=== PATIENT | female | born 1960 | race Caucasian/White ===

== ENCOUNTER → 2018-04-13 11:23 | Outpatient (CLI) | payer OTHER, SELFPAY ==
--- NOTE | 2018-04-13 | DI.MG.S_ITS ---
BILATERAL DIGITAL SCREENING MAMMOGRAM 3D/2D WITH CAD: 04/13/2018 CLINICAL: Routine screening. Comparison is made to exams dated: 11/23/2014 mammogram and 04/01/2012 mammogram - [facility]. The tissue of both breasts is heterogeneously dense. This may lower the sensitivity of mammography. Current study was also evaluated with a Computer Aided Detection (CAD) system. No significant masses, calcifications, or other findings are seen in either breast. There has been no significant interval change. IMPRESSION: NEGATIVE There is no mammographic evidence of malignancy. A 1 year screening mammogram is recommended. This exam was interpreted at Station ID: [id number]. NOTE: For mammograms, a report in lay terms will be sent to the patient. Approximately 15% of breast malignancies will not be visualized mammographically. In the management of a palpable breast mass, a negative mammogram must not discourage biopsy of a clinically suspicious lesion. Electronically Signed By: Gamaliel rahman/rina:04/14/2018 20:02:18 letter sent: Normal Exam ACR BI-RADS Category 1: Negative 3341F
== END ==
PROVIDERS: Visit Provider Physician Assistant
DX: Z12.31 Encounter for screening mammogram for malignant neoplasm of breast (principal)
CPT/HCPCS: 77063; 77067

== ENCOUNTER → 2018-06-23 11:11 | Outpatient (CLI) | payer OTHER, SELFPAY ==
--- NOTE | 2018-06-23 | DI.MRI.S_ITS ---
PROCEDURE: MR LUMBAR SPINE WO CON INDICATIONS: LUMBAR RADICULOPATHY TECHNIQUE: Noncontrast sagittal T1 spin echo and T2 fast echo, sagittal STIR, axial T1 and T2 fast spin echo through the lumbar spine. In cases with scoliosis, additional coronal T2 fast spin echo may be performed. COMPARISON: None. FINDINGS: Image quality: Excellent. Alignment and Curvature: There is normal bony alignment. Bones: Marrow is of normal overall signal. No acute vertebral body compression fractures. Schmorl's node noted in the superior endplate of the L1 vertebral body and the inferior endplate of the L5 vertebral body. Spinal Cord: Conus medullaris terminates at the L2 level. Visualized cord demonstrates normal signal and size. Paraspinous Soft Tissues: No paravertebral masses. L1-L2: Normal appearance. L2-L3: Normal appearance. L3-L4: Loss of disc signal. Minimal, diffuse disc bulge. Mild facet hypertrophy. Mild ligamentum flavum hypertrophy. Mild narrowing of the central canal. No neural foraminal narrowing. No neural impingement. L4-L5: Loss of disc signal. Mild diffuse disc bulge. Mild to moderate facet and moderate ligamentum flavum hypertrophy. Moderate narrowing of the central canal. Mild to moderate bilateral neural foraminal narrowing. No neural impingement. L5-S1: Loss of disc signal mild loss of disc height. Moderate, diffuse disc bulge. Mild bilateral facet hypertrophy. Mild ligamentum flavum hypertrophy. Moderate narrowing of the central canal. Mild right and [id number] left neural foraminal narrowing. No neural impingement. IMPRESSION: 1. Multilevel degenerative disease. 2. Multilevel facet arthropathy. 3. Moderate L4-L5 and L5-S1 central canal narrowing. Mild L3-L4 central canal narrowing. 4. Mild to moderate bilateral L4-L5 neural foraminal narrowing. Mild right and mild/moderate left L5-S1 neural foraminal narrowing. 5. No neural impingement. Dictated by: Charisse Roque MD, PhD on 06/23/2018 at 17:14 Approved by: Charisse Roque MD, PhD on 06/23/2018 at 17:19
--- NOTE | 2018-06-23 | DI.MRI.S_ITS ---
PROCEDURE: MR KNEE LT WO CON INDICATIONS: knee pain TECHNIQUE: Noncontrast sagittal PD fast spin echo and T2 fast spin echo with fat saturation, sagittal 3-D FLASH with fat saturation; coronal T1 spin echo and PD fast spin echo with fat saturation, and axial PD fast spin echo with fat saturation through the knee. COMPARISON: None. FINDINGS: Image quality: Excellent. Menisci: There is a large flap tear of the posterior horn of the medial meniscus which extends to the inferior articular surface. The lateral meniscus demonstrates normal morphology and internal signal. The meniscal root ligaments appear intact. Cruciate ligaments: The anterior cruciate ligament is diminutive in size and there is subtle anterior displacement of the distal femur relative to tibia compatible with chronic, high-grade, partial anterior cruciate ligament tear. The posterior cruciate ligament appears intact. Medial structures: The medial collateral ligament appears intact. The posterior oblique ligament, semimembranosus tendon insertions, oblique popliteal ligament, and meniscocapsular junction appear intact. Visualized portions of the pes anserinus tendons appear normal. No abnormal bursal fluid. Lateral structures: The lateral collateral ligament, long and short heads of the biceps femoris tendon appear intact. The popliteus tendon appears normal; the popliteofibular ligament appears intact. The posterosuperior and anteroinferior popliteomeniscal fascicles appear intact. The arcuate and fabellofibular ligaments appear intact, on either side of the lateral inferior geniculate artery. Iliotibial band appears normal. Anterior structures: The quadriceps and patellar tendons appear intact. Patellar alignment is normal. No femoral trochlear dysplasia or ventral trochlear prominence. No edema in the infrapatellar fat pad. Bones and cartilage: No bone marrow contusions or fractures. Mild tricompartmental osteoarthritic degenerative changes are noted. There is thinning and fissuring of the articular cartilage of the medial facet of the patella. Joint space: There is physiologic knee joint fluid. No Smith's cyst. Normal appearing synovial plicae are incidentally noted. IMPRESSION: 1. Large oblique tear of the posterior horn of the medial meniscus. 2. 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 3. Mild tricompartmental osteoarthritis. Dictated by: Charisse Roque MD, PhD on 06/23/2018 at 17:32 Approved by: Charisse Roque MD, PhD on 06/24/2018 at 9:14
== END ==
PROVIDERS: Visit Provider Physical Medicine & Rehabilitation
DX: M51.16 Intervertebral disc disorders with radiculopathy, lumbar region (principal); M51.17 Intervertebral disc disorders with radiculopathy, lumbosacral region; M47.26 Other spondylosis with radiculopathy, lumbar region; M48.061 Spinal stenosis, lumbar region without neurogenic claudication
CPT/HCPCS: 72148; 73721

== ENCOUNTER → 2019-06-17 15:21 | Outpatient (CLI) | payer OTHER, SELFPAY ==
--- NOTE | 2019-06-17 | DI.MG.S_ITS ---
BILATERAL DIGITAL SCREENING MAMMOGRAM 3D/2D WITH CAD: 06/17/2019 CLINICAL: Routine screening. Comparison is made to exams dated: 04/13/2018 mammogram - [facility], 11/23/2014 mammogram, and 04/01/2012 mammogram - [facility]. The tissue of both breasts is heterogeneously dense. This may lower the sensitivity of mammography. Current study was also evaluated with a Computer Aided Detection (CAD) system. There are benign calcifications in both breasts. No significant masses, calcifications, or other findings are seen in either breast. There has been no significant interval change. IMPRESSION: There is no mammographic evidence of malignancy. A 1 year screening mammogram is recommended. This exam was interpreted at Station ID: [id number]. NOTE: For mammograms, a report in lay terms will be sent to the patient. Approximately 15% of breast malignancies will not be visualized mammographically. In the management of a palpable breast mass, a negative mammogram must not discourage biopsy of a clinically suspicious lesion. Electronically Signed By: Butch clark/rina:06/18/2019 13:31:56 letter sent: Normal Exam ACR BI-RADS Category 2: Benign Finding(s) 3342F
== END ==
PROVIDERS: PCP Family Medicine; Visit Provider Family Medicine
DX: Z12.31 Encounter for screening mammogram for malignant neoplasm of breast (principal)
CPT/HCPCS: 77063; 77067

== ENCOUNTER → 2019-08-08 14:07 | Outpatient (CLI) | payer OTHER, SELFPAY | PROVIDERS: PCP Family Medicine; Visit Provider Family Medicine | DX: M85.852 Other specified disorders of bone density and structure, left thigh (principal); Z78.0 Asymptomatic menopausal state; E07.9 Disorder of thyroid, unspecified | CPT/HCPCS: 77080 ==

== ENCOUNTER → 2020-06-18 11:05 | Outpatient (CLI) | payer OTHER, MEDICAID, SELFPAY ==
--- NOTE | 2020-06-18 | DI.MG.S_ITS ---
BILATERAL DIGITAL SCREENING MAMMOGRAM 3D/2D WITH CAD: 06/18/2020 CLINICAL: Routine screening. Comparison is made to exams dated: 06/17/2019 mammogram, 04/13/2018 mammogram - [facility], 11/23/2014 mammogram, and 04/01/2012 mammogram - [facility]. The tissue of both breasts is heterogeneously dense. This may lower the sensitivity of mammography. Current study was also evaluated with a Computer Aided Detection (CAD) system. There are benign calcifications in both breasts. There also are benign vascular calcifications in the right breast. No significant masses, calcifications, or other findings are seen in either breast. There has been no significant interval change. IMPRESSION: BENIGN There is no mammographic evidence of malignancy. A 1 year screening mammogram is recommended. This exam was interpreted at Station ID: [id number]. NOTE: For mammograms, a report in lay terms will be sent to the patient. Approximately 15% of breast malignancies will not be visualized mammographically. In the management of a palpable breast mass, a negative mammogram must not discourage biopsy of a clinically suspicious lesion. Electronically Signed By: Dirk durham/rina:06/18/2020 16:55:37 letter sent: Normal Exam ACR BI-RADS Category 2: Benign Finding(s) 3342F
== END ==
PROVIDERS: PCP Family Medicine; Referring Provider Family Medicine; Visit Provider Family Medicine
DX: Z12.31 Encounter for screening mammogram for malignant neoplasm of breast (principal)
CPT/HCPCS: 77063; 77067

== ENCOUNTER 2020-07-23 18:02 | Observation (INO) | payer OTHER, MEDICAID, SELFPAY ==
[2020-07-23] VITALS (9 sets, daily range): BP systolic 114–149; BP diastolic 74–90; PULSE 67–92; RESP 12–27; TEMP 36.5–36.9; O2SAT 97–100; BMI 22.9
--- NOTE | 2020-07-23 18:11 | DI.RAD.S_ITS ---
PROCEDURE: XR CHEST 1V INDICATIONS: chest pain TECHNIQUE: One view of the chest was acquired. COMPARISON: None. FINDINGS: Surgical changes and devices: None. Lungs and pleura: Lungs are clear. No pleural effusions or pneumothorax. Mediastinum: Mediastinal contours appear normal. Heart size is normal. Bones and chest wall: No suspicious bony lesions. Overlying soft tissues appear unremarkable. IMPRESSION: No acute cardiopulmonary process demonstrated radiographically. Dictated by: Bob Marie M.D. on 07/23/2020 at 17:20 Approved by: Bob Marie M.D. on 07/23/2020 at 17:21
--- NOTE | 2020-07-23 18:29 | ED.CHESTPAIN ---
HPI - Chest Pain General Chief Complaint: Chest Pain Stated Complaint: SOB THROAT TIGHTNESS DIZZY Time Seen by Provider: 07/23/20 18:19 Source: patient Mode of arrival: Ambulatory Limitations: no limitations History of Present Illness HPI narrative: Patient is a 60-year-old female with known coronary artery disease. Had a stent placed many years ago in her [place]. She was followed up by Cardiology 2 years ago where she underwent a perfusion stress test. Patient states she does not remember the results of it but was never instructed to follow-up with cardiology afterwards. Has been in a normal state health since then. Today she states she was walking outside. She does live on [facility]. States that while she was walking she became nauseous, had epigastric pain, had a very short period of time where she had sharp pain radiating down her left arm. She also describes an shortness of breath. She thinks that the entire episode lasted 30-45 minutes. It has ended approximately 5-1/2 hours prior to arrival here in the emergency department. [place] come to the emergency department. She did arrive here by private vehicle. She did receive aspirin prior to arrival. She has been symptom-free since this event ended. Related Data Home Medications Medication Instructions Recorded Confirmed aspirin 81 mg PO DAILY 07/23/20 07/23/20 calcium carbonate-vit D3-min 1 tab PO QPM 07/23/20 07/23/20 [Calcium-Vitamin D] ezetimibe 10 mg PO QPM 07/23/20 07/23/20 ferrous sulfate 325 mg PO QPM 07/23/20 07/23/20 levothyroxine 50 mcg PO QPM 07/23/20 07/23/20 lisinopril 10 mg PO QPM 07/23/20 07/23/20 rosuvastatin 20 mg PO QPM 07/23/20 07/23/20 Allergies Allergy/AdvReac Type Severity Reaction Status Date / Time Penicillins Allergy Verified 07/23/20 18:11 Review of Systems Constitutional Constitutional: Denies fatigue, Denies fever(s) and Denies headache(s) ENT Ears, Nose, Mouth, and Throat: Denies headache(s) Cardiovascular Cardiovascular: Reports chest pain, Reports rapid heart rate, Reports irregular heart rhythm and Reports dyspnea Respiratory Respiratory: Denies cough and Reports dyspnea Gastrointestinal Gastrointestinal: Denies change in bowel habits, Reports nausea and Denies vomiting Genitourinary Genitourinary: Denies dysuria Genitourinary: Denies dysuria Musculoskeletal Musculoskeletal: Denies arthralgias and Denies myalgias Integumentary/Breasts Skin/Breast: Denies lesions and Denies rash Neurologic Neurologic: Denies behavioral changes and Denies headache(s) Psychiatric Psychiatric: Denies behavioral changes Endocrine Endocrine: Denies fatigue Hematologic/Lymphatic Hematologic/Lymphatic: Denies easy bleeding and Denies easy bruising Allergic/Immunologic Allergic/Immunologic: Denies urticaria Patient History Medical History Coronary artery disease Substance Use Type: marijuana Exam Initial Vital Signs Initial Vital Signs: Vital Signs Temperature 98.5 F 07/23/20 18:15 Pulse Rate 92 H 07/23/20 18:15 Respiratory Rate 16 07/23/20 18:15 Blood Pressure 143/86 H 07/23/20 18:15 Pulse Oximetry 99 07/23/20 18:15 Const General: cooperative, comfortable, well developed and well groomed Limitations: mental status not altered HENMI Head: normal to inspection and normocephalic Resp Effort & Inspection: normal respiratory effort Auscultation: clear to auscultation bilaterally Cardio Rate: regular rate Rhythm: regular rhythm GI Inspection: non-distended Palpation: soft Skin Lesions: no lesions Rashes: no rashes Neuro General: patient alert and patient awake Cognition: normal cognition Speech: speech normal Extrem General: capillary refill normal Psych Appearance: grossly normal and well kempt Scores GCS [place] coma scale eye opening: Spontaneous [place] coma scale verbal response: Orientated Joel coma scale motor response: Obey commands [place] coma scale total score: 15 HEART Score Heart Score history: Moderately Suspicious Heart Score EKG: Non-Specific repolarization disturbance Heart Score Age: 45-64 years old Heart Score risk factors: > 3 risk factors or hx of atherosclerotic disease Heart Score troponin: 1-3 times normal limit Heart Score Total: 6 Course Orders Ordered: ED Orders 07/23/20 18:11 XR chest 1V Stat EKG-12 Lead Stat 07/23/20 18:45 Complete Blood Count AUTO DIFF Stat Comprehensive Metabolic Panel Stat Lipase Stat Partial Thromboplastin Time Stat Prothrombin Time INR Stat Troponin & CK Cardiac Panel Stat 12/15/20 20:05 COVID19 Stat Discontinued Medications Aspirin (Aspirin 81 Mg Chew Tab) 324 mg PO NOW ONE Stop: 07/23/20 19:27 Last Admin: 07/23/20 19:28 Dose: Not Given Documented by: PHILIP Vital Signs Vital signs: Vital Signs - 8 hr 07/23/20 18:15 07/23/20 18:56 07/23/20 18:57 Temperature 98.5 F Pulse Rate 92 H 77 77 Respiratory Rate 16 16 Blood Pressure 143/86 H 139/83 Pulse Oximetry 99 99 100 07/23/20 19:00 07/23/20 19:30 07/23/20 20:00 Temperature Pulse Rate 75 80 78 Respiratory Rate 27 H 12 20 Blood Pressure 139/84 131/78 149/87 H Pulse Oximetry 100 97 99 MDM - Chest Pain Lab Data Attestation: I reviewed the patient's lab results. Result diagrams: 07/23/20 18:45 07/23/20 18:45 Labs: Lab Results 07/23/20 07/23/20 07/23/20 Range/Units 18:45 18:45 18:45 WBC 7.4 (4.5-11.0) X10^3/uL RBC 4.62 (4.0-5.2) X10^6/uL Hgb 13.9 (12.0-16.0) g/dL Hct 41.2 (36-46) % MCV 89.2 (80-100) fL MCH 30.1 (26-34) PG MCHC 33.7 (30-36) % RDW 12.3 (11.6-14.8) % Plt Count 230 (150-400) X10^3/uL Neut % (Auto) 70.1 (50-75) % Lymph % (Auto) 23.8 L (25-40) % Stafford % (Auto) 5.4 (3-14) % Eos % (Auto) 0.3 L (2-4) % Baso % (Auto) 0.4 (0-2) % Neut # (Auto) 5200 (9228-7773) /uL Lymph # (Auto) 1800 (3193-1264) /uL Stafford # (Auto) 400 (0-900) /uL Eos # (Auto) 0 (0-450) /uL Baso # (Auto) 0 (0-100) /uL PT 11.3 (10.1-12.7) SECONDS INR 1.0 (0.9-1.3) APTT 28 (26.4-36.2) SECONDS Sodium 137 (137-145) mmol/L Potassium 3.8 (3.4-5.1) mmol/L Chloride 105 (98-107) mmol/L Carbon Dioxide 29 (22-32) mmol/L BUN 15 (7-17) mg/dL Creatinine 0.87 (0.52-1.04) mg/dL Estimated GFR > 60.0 (>60) mL/min BUN/Creatinine Ratio 17.2 (6-22) Glucose 100 (80-110) mg/dL Calcium 8.8 (8.4-10.2) mg/dL Total Bilirubin 0.4 (0.2-1.3) mg/dL AST 41 H (14-36) IU/L ALT 35 H (<35) IU/L Alkaline Phosphatase 40 (38-126) U/L Total Creatine Kinase 119 (30-135) U/L CK-MB (CK-2) 1.15 (<2.37) ng/mL CK-MB (CK-2) Rel Index 1.0 L (1.5-5.0) % Troponin I 0.036 H (0.01-0.034) ng/mL Total Protein 7.0 (6.3-8.2) g/dL Albumin 4.3 (3.5-5.0) g/dL Globulin 2.7 (1.7-4.1) g/dL Albumin/Globulin Ratio 1.6 (1.0-2.8) Lipase 79 (23-300) U/L COVID-19 PCR (Negative) 07/23/20 Range/Units 20:05 WBC (4.5-11.0) X10^3/uL RBC (4.0-5.2) X10^6/uL Hgb (12.0-16.0) g/dL Hct (36-46) % MCV (80-100) fL MCH (26-34) PG MCHC (30-36) % RDW (11.6-14.8) % Plt Count (150-400) X10^3/uL Neut % (Auto) (50-75) % Lymph % (Auto) (25-40) % Stafford % (Auto) (3-14) % Eos % (Auto) (2-4) % Baso % (Auto) (0-2) % Neut # (Auto) (8833-3745) /uL Lymph # (Auto) (4585-0955) /uL Stafford # (Auto) (0-900) /uL Eos # (Auto) (0-450) /uL Baso # (Auto) (0-100) /uL PT (10.1-12.7) SECONDS INR (0.9-1.3) APTT (26.4-36.2) SECONDS Sodium (137-145) mmol/L Potassium (3.4-5.1) mmol/L Chloride (98-107) mmol/L Carbon Dioxide (22-32) mmol/L BUN (7-17) mg/dL Creatinine (0.52-1.04) mg/dL Estimated GFR (>60) mL/min BUN/Creatinine Ratio (6-22) Glucose (80-110) mg/dL Calcium (8.4-10.2) mg/dL Total Bilirubin (0.2-1.3) mg/dL AST (14-36) IU/L ALT (<35) IU/L Alkaline Phosphatase (38-126) U/L Total Creatine Kinase (30-135) U/L CK-MB (CK-2) (<2.37) ng/mL CK-MB (CK-2) Rel Index (1.5-5.0) % Troponin I (0.01-0.034) ng/mL Total Protein (6.3-8.2) g/dL Albumin (3.5-5.0) g/dL Globulin (1.7-4.1) g/dL Albumin/Globulin Ratio (1.0-2.8) Lipase (23-300) U/L COVID-19 PCR Negative (Negative) Imaging Data Chest x-ray: Radiologist's Impression: [address] [id number] ReportSigned Patient: Rajat Edwards#: [id number]: 1960Acct:[id number]/Sex: 60 / FDate of Service: 07/23/20Loc: EDAccession Number: [id number] Procedure: XR chest 1V Ordering Provider: Yusef Baer D.O. PROCEDURE: XR CHEST 1V INDICATIONS: chest pain TECHNIQUE: One view of the chest was acquired. COMPARISON: None. FINDINGS: Surgical changes and devices: None. Lungs and pleura: Lungs are clear. No pleural effusions or pneumothorax. Mediastinum: Mediastinal contours appear normal. Heart size is normal. Bones and chest wall: No suspicious bony lesions. Overlying soft tissues appear unremarkable. IMPRESSION: No acute cardiopulmonary process demonstrated radiographically. Dictated by: Bob Marie M.D. on 07/23/2020 at 17:20 Approved by: Bob Marie M.D. on 07/23/2020 at 17:21 ECG Data Attestation: I personally reviewed and interpreted this ECG as follows: Prior ECG tracings: not available for review Interpretation: Sinus rhythm Ventricular rate 83 Normal QRS Normal QTC [address] depression V4 V5 V6 and other nonspecific changes MDM Narrative Medical decision making narrative: Patient has been chest pain-free since 5-1/2 hours ago. Has nonspecific changes on her EKG. She did receive aspirin prior to arrival. I did discuss the case with Dr. Ko who is on-call for Cardiology the [facility] with the patient's all 2 years ago who was able to look up her perfusion stress test in states that it was unremarkable. He was able to look up an old EKG which shows that it was normal at that time. The nonspecific changes today are new. Her troponin is above the 99th percentile but not at the AMI cut off. He stated that patient could be admitted at this facility and have provocative testing to include stress test and trending of the troponins. He did not feel the patient needed to be transferred and would not perform a catheterization unless troponins become positive or stress testing was positive. I did discuss this with the patient. She agreed to be admitted to the hospital for further evaluation and treatment. I also discussed the case with NAY Rojas the [facility] provider who will admit for further evaluation and treatment. Discharge Plan Departure Patient Disposition: Admitted as Observation Clinical Impression: Chest pain Admit Date/Time: 07/23/20 20:11 Admit Provider: Tara Rojas
[2020-07-23 18:57] LABS: Add Manual Diff / Slide Review NO; Basophils Absolute Auto 0 /uL (0-100); Basophils Percent Auto 0.4 % (0-2); Eosinophils Absolute Auto 0 /uL (0-450); Eosinophils Percent Auto 0.3 % (2-4); Hematocrit 41.2 % (36-46); Hemoglobin 13.9 g/dL (12.0-16.0); Lymphocytes Absolute Auto 1800 /uL (1100-4500); Lymphocytes Percent Auto 23.8 % (25-40); Mean Corpuscular HGB Conc 33.7 % (30-36); Mean Corpuscular Hemoglobin 30.1 PG (26-34); Mean Corpuscular Volume 89.2 fL (80-100); Monocytes Absolute Auto 400 /uL (0-900); Monocytes Percent Auto 5.4 % (3-14); Neutrophils Absolute Auto 5200 /uL (1500-7000); Neutrophils Percent Auto 70.1 % (50-75); Platelet Count 230 X10^3/uL (150-400); Red Blood Cell Count 4.62 X10^6/uL (4.0-5.2); Red Cell Distribution Width 12.3 % (11.6-14.8); White Blood Cell Count 7.4 X10^3/uL (4.5-11.0)
[2020-07-23 19:04] LABS: Prothrombin Time 11.3 SECONDS (10.1-12.7)
[2020-07-23 19:06] LABS: PTT Partial Thromboplastin Tim 28 SECONDS (26.4-36.2)
[2020-07-23 19:09] LABS: Alanine Aminotransferase 35 IU/L (<35); Albumin 4.3 g/dL (3.5-5.0); Albumin Globulin Ratio 1.6 (1.0-2.8); Alkaline Phosphatase 40 U/L (38-126); Aspartate Aminotransferase 41 IU/L (14-36); BUN Creatinine Ratio 17.2 (6-22); Bilirubin Total 0.4 mg/dL (0.2-1.3); Blood Urea Nitrogen 15 mg/dL (7-17); Calcium 8.8 mg/dL (8.4-10.2); Carbon Dioxide 29 mmol/L (22-32); Chloride 105 mmol/L (98-107); Creatine Kinase 119 U/L (30-135); Estimated Glomerular Filt Rate > 60.0 mL/min (>60); Globulin 2.7 g/dL (1.7-4.1); Glucose 100 mg/dL (80-110); HEMOLYSIS 26 (0-50); Lipase 79 U/L (23-300); Potassium 3.8 mmol/L (3.4-5.1); Sodium 137 mmol/L (137-145)
[2020-07-23 19:20] LABS: Troponin I 0.036 ng/mL (0.01-0.034)
[2020-07-23 19:24] LABS: Creatine Kinase MB 1.15 ng/mL (<2.37)
[2020-07-23 20:33] LABS: COVID19 -Nasal RAPID Negative (Negative)
--- NOTE | 2020-07-23 21:03 | DI.ECHO.S_ITS ---
[facility] +---------+ : : [address] [place] : : : : [id number] : : : : Phone: [phone]+ Echocardiogram Report + + :Name: CONRADO TRIPATHI Study Date: 07/24/2020 Height: 65 in : :[facility] Weight: 198 lb : : Gender: Female BSA: 2.0 m2 : :: 1960 Age: 60 yrs BP: 114/74 mmHg: :Reason For Study: CHEST PAIN, NONSPECIFIC EKG CHANGES : :Ordering Physician: : :VIVI PEREZ MAJOR [employer]IFTS MANAGER-BC Performed By: Evelin Sánchez : :Referring: VIVI PEREZ : + + Interpretation Summary The left ventricle is normal in size and wall thickness. Left ventricular systolic function appears normal without focal wall motion abnormalities. The ejection fraction is estimated to be 60-65%. Diastolic parameters suggest probable normal left ventricular diastolic function and normal filling pressures. The right ventricle is normal in size and function. Pulmonary artery pressures cannot be estimated because of the lack of a measurable TR jet velocity but the IVC suggests a CVP of around 3 mmHg. Both atria are normal in size. There is no significant valvular heart disease. The aortic root is normal size. Procedure: A two-dimensional transthoracic echocardiogram with color flow and Doppler was performed. The study quality was technically adequate. There is no prior echocardiogram noted for this patient. The patient was in sinus rhythm with heart rates between 60-69 bpm during the exam. Left Ventricle: The left ventricle is normal in size and wall thickness. Left ventricular systolic function appears normal without focal wall motion abnormalities. The ejection fraction is estimated to be 60-65%. Diastolic parameters suggest probable normal left ventricular diastolic function and normal filling pressures. Right Ventricle: The right ventricle is normal in size and function. Atria: Both atria are normal in size. There is no Doppler evidence for an interatrial shunt. Mitral Valve: The mitral valve is normal in structure and function. There is no mitral regurgitation noted. Aortic Valve: The aortic valve is not well visualized. The aortic valve opens well. There is no aortic valve stenosis. No aortic regurgitation is present. Tricuspid Valve: The tricuspid valve is normal in structure and function. Pulmonary artery pressures cannot be estimated because of the lack of a measurable TR jet velocity but the IVC suggests a CVP of around 3 mmHg. There is trace tricuspid regurgitation. Pulmonic Valve: The pulmonic valve is not well visualized. There is no pulmonic valvular regurgitation. There is no significant valvular heart disease. Great Vessels: The aortic root is normal size. The dimensions of the ascending aorta are normal. The IVC is of normal diameter and collapses greater than 50% with a sniff. This suggests a low right atrial pressure of 3 mm Hg. Pericardium/ Pleura There is no pericardial effusion. There is no pleural effusion. MMode/2D Measurements & Calculations LVIDd: 4.4 cm LVOT diam: 1.9 cm LVIDs: 3.1 cm Ao root diam: 2.8 cm FS: 29.1 % asc Aorta Diam: 3.0 cm EPSS: 0.16 cm Ao Arch Diam (Prox Trans): 2.3 cm IVSd: 0.76 cm LVPWd: 0.81 cm LV loja. diameter/BSA (cm/m^2): 2.2 LV sys. diameter/BSA (cm/m^2): 1.6 LA A2 area: 17.0 cm2 RA long axis: 4.6 cm LA A4 area: 14.1 cm2 RA area: 14.7 cm2 LA length (vol): 5.3 cm RA vol: 40.0 ml LA vol: 38.5 ml RA : 20.3 ml/m2 LA vol index: 19.5 ml/m2 IVC diam: 1.4 cm RVD1 (basal): 3.2 cm TAPSE: 2.2 cm Doppler Measurements & Calculations Ao V2 max: 117.2 cm/sec LVOT Max Ricardo: 84.0 cm/sec Ao V2 mean: 77.5 cm/sec LV V1 max P.8 mmHg Ao max P.5 mmHg LV V1 VTI: 18.5 cm Ao mean P.8 mmHg EVONNE(I,D): 2.1 cm2 Ao V2 VTI: 25.7 cm EVONNE(V,D): 2.1 cm2 sev ratio: 0.72 EVONNE indexed to BSA (cm^2/m^2): 1.1 MV E max ricardo: 70.5 cm/sec PA V2 max: 41.6 cm/sec MV A max ricardo: 44.4 cm/sec PA V2 mean: 27.8 cm/sec MV E/A: 1.6 PA mean P.35 mmHg Med Peak E' Ricardo: 9.2 cm/sec PA pr(Accel): 1.9 mmHg E/E' med: 7.7 Lat Peak E' Ricardo: 11.8 cm/sec E/E' lat: 6.0 E/e' average: 6.8 MV dec time: 0.22 sec SV(LVOT): 53.7 ml Reading Physician:09:17 AM
[2020-07-23 21:19] LABS: Magnesium 2.3 mg/dL (1.6-2.3)
[2020-07-23 21:29] LABS: NT-proBNP (BNP-Adult 18+) 222 pg/mL (<125)
[2020-07-23] MEDS: ROSUVASTATIN 10 MG TABLET 20 MG PO (21:32)
[2020-07-23] MEDS: LEVOTHYROXINE 50 MCG TABLET PO (21:32)
[2020-07-23] MEDS: FERROUS SULFATE 325 MG TABLET PO (21:32)
[2020-07-23] MEDS: lisinopriL 10 MG TABLET PO (21:32)
[2020-07-23] MEDS: EZETIMIBE 10 MG TABLET PO (21:34)
[2020-07-24 02:00] VITALS: O2SAT 97
[2020-07-24 05:00] VITALS: BP 110/76; PULSE 64; RESP 16; TEMP 36.2; O2SAT 97
[2020-07-24 05:45] LABS: Amylase 50 U/L (30-110); BUN Creatinine Ratio 22.1 (6-22); Blood Urea Nitrogen 17 mg/dL (7-17); Calcium 8.6 mg/dL (8.4-10.2); Carbon Dioxide 27 mmol/L (22-32); Chloride 107 mmol/L (98-107); Cholesterol 159 mg/dL (140-199); Creatine Kinase 96 U/L (30-135); Estimated Glomerular Filt Rate > 60.0 mL/min (>60); Glucose 101 mg/dL (80-110); HDL Cholesterol 60 mg/dL (40-60); HEMOLYSIS < 15 (0-50); LDL Cholesterol Calculated 86 mg/dL (<100); Potassium 3.8 mmol/L (3.4-5.1); Sodium 135 mmol/L (137-145); Triglycerides 63 mg/dL (35-150)
[2020-07-24 05:55] LABS: Troponin I < 0.012 ng/mL (0.01-0.034)
[2020-07-24 06:00] VITALS: O2SAT 97
--- NOTE | 2020-07-24 06:03 | P.HP_ITS ---
History of Present Illness History of Present Illness Date Patient Seen: 07/23/20 Time Patient Seen: 20:03 Chief complaint: SOB THROAT TIGHTNESS DIZZY Narrative: Patient is a 60-year-old female presenting to the ER for severe epigastric pain radiating down her left arm with shortness of breath. Today she states she was walking outside. She lives on [facility] and while she was walking she became nauseous, had epigastric pain, had a very short period of time where she had sharp pain radiating down her left arm, tachycardia, throat discomfort, dizziness with shortness of breath. She thinks that the entire episode lasted 30-45 minutes. It has ended approximately 5-1/2 hours prior to arrival here in the emergency department. [place] come to the emergency department. Patient has a history of coronary artery disease with stent placed in LAD x2 in 2006. Her last cardiology follow-up was 2 years ago with a repeat catheterization and perfusion stress test which were normal. She did receive aspirin prior to arrival. She has been symptom-free since this event ended and is resting comfortably in her room, in no distress and is a very detailed historian. Patient has a history of sciatica x3 years for the left leg and has had a cortisone injection in the spine 2 years ago and continues with conservative measures to control pain. And a history of acquired hypothyroidism, and osteopenia. Patient has a strong family history for cardiac disease heart attack and bypass in all 4 brothers, mother and father. Patient has been admitted for observation has had no further symptoms, denies any weakness,difficulty with balance or coordination, difficulty swallowing slurred speech, changes in vision, loss of consciousness, difficulty with bowel or bladder function, fever, body aches, chills, cough, shortness of breath, CP, any skin lesions, abnormal bleeding, bruising, or wound healing. Patient is a nonsmoker, lipase 79, troponin 0.036, INR 1.0, chest x-ray normal, CK-MB normal, EKG [address] depression V4 V5 V6 and other nonspecific changes in ER. Patient History Medical History Coronary artery disease History of placement of stent in LAD coronary artery Surgical History History of tubal ligation Family & Social History Family History (Updated 07/24/20 @ 06:41 by Tara Rojas [facility]) Brother CAD (coronary artery disease) of artery bypass graft Colorectal cancer Brother CAD (coronary artery disease) of artery bypass graft Brother CAD (coronary artery disease) of artery bypass graft Brother CAD (coronary artery disease) of artery bypass graft Father CAD (coronary artery disease) of artery bypass graft Mother CAD (coronary artery disease) of artery bypass graft Social History: household members Lives alone, works as a caregiver Prior Living Arrangements House Safety & Behavioral: Feels Safe in Current Yes Environment Been Physically Hurt or No Threatened By a Person Suicidal Ideation Description None Suicide Plan Description No Plan Tobacco & Substance use: Smoking Status Never smoker alcohol intake frequency holiday/special occasion 1-2 glasses of wine per day Substance Use Type marijuana tinture only Meds Home Medications and Allergies Home Medications Medication Instructions Recorded Confirmed Type aspirin 81 mg PO DAILY 07/23/20 07/23/20 History calcium carbonate-vit D3-min 1 tab PO QPM 07/23/20 07/23/20 History [Calcium-Vitamin D] ezetimibe 10 mg PO QPM 07/23/20 07/23/20 History ferrous sulfate 325 mg PO QPM 07/23/20 07/23/20 History levothyroxine 50 mcg PO QPM 07/23/20 07/23/20 History lisinopril 10 mg PO QPM 07/23/20 07/23/20 History rosuvastatin 20 mg PO QPM 07/23/20 07/23/20 History Allergies Allergy/AdvReac Type Severity Reaction Status Date / Time Penicillins Allergy Verified 07/23/20 18:11 Review of Systems Review of Systems ROS: Yes All systems reviewed with the patient and are negative except as otherwise documented Exam Vital Signs (past 8 hours): - 07/23/20 23:54 07/24/20 02:00 07/24/20 05:00 Temperature 97.8 F 97.2 F L Pulse Rate 67 64 Respiratory Rate 16 16 Blood Pressure 114/74 110/76 Pulse Oximetry 97 97 97 Oxygen Delivery Method Room Air Oxygen Flow Rate 0 Narrative Exam Narrative: General: Well-developed well-nourished female in no distress at this time HEENT: Normocephalic, atraumatic, extraocular muscles intact. PERRLA, oropharynx is clear and mucous membranes are moist. Neck is supple and symmetric trachea is midline, no thyroid enlargement, nontender, no masses palpated. Lungs: Auscultations of lung is clear in all [place] without adventitious sounds, wheezing, rhonchi, or rales Cardiac: S1-S2 with regular rate and rhythm without murmur rubs, or gallops, no carotid bruit. Musculoskeletal: Muscle strength and tone equal within normal limits, no deformity, crepitus, or effusions noted. No cyanosis, clubbing or edema, full range of motion intact, radial and pedal pulses are normal. Abdomen: Soft nontender, negative for organomegaly, or masses, bowel sounds p resent in all 4 quadrants no guarding or rebound present, no CVA tenderness. Skin: Warm dry and intact without rashes, ulcerations or petechiae. Neuro/psych: Alert orientated x3 appropriate affect strength is 5+ out of 5+ in all extremities, sensation to touch intact cranial nerves 2-12 grossly intact appearance mental status attitude, and thought context and judgment is appropriate for age. Objective Labs Result Diagrams: 07/23/20 18:45 07/24/20 04:55 Labs: Laboratory Results - last 24 hr 07/23/20 07/23/20 07/23/20 18:45 18:45 18:45 WBC 7.4 RBC 4.62 Hgb 13.9 Hct 41.2 MCV 89.2 MCH 30.1 MCHC 33.7 RDW 12.3 Plt Count 230 Neut % (Auto) 70.1 Lymph % (Auto) 23.8 L [place] % (Auto) 5.4 Eos % (Auto) 0.3 L Baso % (Auto) 0.4 Neut # (Auto) 5200 Lymph # (Auto) 1800 [place] # (Auto) 400 Eos # (Auto) 0 Baso # (Auto) 0 PT 11.3 INR 1.0 APTT 28 Sodium 137 Potassium 3.8 Chloride 105 Carbon Dioxide 29 BUN 15 Creatinine 0.87 Estimated GFR > 60.0 BUN/Creatinine Ratio 17.2 Glucose 100 Calcium 8.8 Magnesium Total Bilirubin 0.4 AST 41 H ALT 35 H Alkaline Phosphatase 40 Total Creatine Kinase 119 CK-MB (CK-2) 1.15 CK-MB (CK-2) Rel Index 1.0 L Troponin I 0.036 H NT-Pro-B Natriuret Pep Total Protein 7.0 Albumin 4.3 Globulin 2.7 Albumin/Globulin Ratio 1.6 Triglycerides Cholesterol LDL Cholesterol, Calc HDL Cholesterol Amylase Lipase 79 COVID-19 PCR 07/23/20 07/23/20 07/24/20 18:45 20:05 04:55 WBC RBC Hgb Hct MCV MCH MCHC RDW Plt Count Neut % (Auto) Lymph % (Auto) [place] % (Auto) Eos % (Auto) Baso % (Auto) Neut # (Auto) Lymph # (Auto) [place] # (Auto) Eos # (Auto) Baso # (Auto) PT INR APTT Sodium 135 L Potassium 3.8 Chloride 107 Carbon Dioxide 27 BUN 17 Creatinine 0.77 Estimated GFR > 60.0 BUN/Creatinine Ratio 22.1 H Glucose 101 Calcium 8.6 Magnesium 2.3 Total Bilirubin AST ALT Alkaline Phosphatase Total Creatine Kinase 96 CK-MB (CK-2) TNP CK-MB (CK-2) Rel Index TNP Troponin I < 0.012 NT-Pro-B Natriuret Pep 222 H Total Protein Albumin Globulin Albumin/Globulin Ratio Triglycerides 63 Cholesterol 159 LDL Cholesterol, Calc 86 HDL Cholesterol 60 Amylase 50 Lipase COVID-19 PCR Negative Assessment & Plan Assessment & Plan narrative: Patient was admitted for chest pain and nonspecific changes to EKG that are new today, presentation of severe epigastric pain radiating down her left arm with shortness of breath. Her troponin is above the 99th percentile but did not meet the AMI cut off. Patient was recommended per Cardiology consult (see ER note), required inpatient management of serial enzymes, stress test to monitor and determine if patient was a candidate for transfer for catheterization. Patient required a higher level of in patient acuity management due to her known cardiac history of LAD x2 drug-eluting stent placements in 2006, and her extensive family cardiac history of multiple bypasses, by all 6 members for immediate family. 1. Severe acute chest pain with new onset nonspecific EKG changes, secondary to coronary artery disease, acute on chronic, present on admission, possible AMI -EKG: Sinus rhythm, Ventricular rate 83, Normal QRS & QTC, [address] depression V4 V5 V6 and other nonspecific changes. Dr. Ko with [facility] noted that last EKG 2 years ago was normal with no ST changes. ProBNP 222, troponin 0.036, lipase 79, AST 41, ALT 35, chest x-ray was negative. INR 1.0. -patient on telemedicine, vital signs q.4 hours, I&O measured Q shift, weight is measured daily. -patient given ASA prior to ER, patient on enoxaparin 40 mg q.day and SCDs for VTE prophylaxis -repeat troponin x3 q.6 hours, CK-MB today -echo ordered for today -continue Rosuvastatin 20mg Q day, lisinopril 10 mg once daily 2. hypothyroidism acquired, chronic, stable, present on admission -continue level thyroxine 50 mcg once daily Code status: Full code Decision maker: Mary Lopez [phone] [id number]: Not completed COVID negative
[2020-07-24 07:40] VITALS: O2SAT 98
[2020-07-24 08:20] VITALS: BP 108/84; PULSE 66; RESP 15; TEMP 36.4; O2SAT 98
--- NOTE | 2020-07-24 09:27 | PM.DS.1 ---
History of Present Illness History of Present Illness Date Patient Seen: 07/24/20 Time Patient Seen: 09:27 Chief complaint: SOB THROAT TIGHTNESS DIZZY Narrative: As per CHITO fontana: Patient is a 60-year-old female presenting to the ER for severe epigastric pain radiating down her left arm with shortness of breath. Today she states she was walking outside. She lives on [facility] and while she was walking she became nauseous, had epigastric pain, had a very short period of time where she had sharp pain radiating down her left arm, tachycardia, throat discomfort, dizziness with shortness of breath. She thinks that the entire episode lasted 30-45 minutes. It has ended approximately 5-1/2 hours prior to arrival here in the emergency department. [place] to come to the emergency department. Patient has a history of coronary artery disease with stent placed in LAD x2 in 2006. Her last cardiology follow-up was 2 years ago with a repeat catheterization and perfusion stress test which were normal. She did receive aspirin prior to arrival. She has been symptom-free since this event ended and is resting comfortably in her room, in no distress and is a very detailed historian. Patient has a history of sciatica x3 years for the left leg and has had a cortisone injection in the spine 2 years ago and continues with conservative measures to control pain. And a history of acquired hypothyroidism, and osteopenia. Patient has a strong family history for cardiac disease heart attack and bypass in all 4 brothers, mother and father. Patient has been admitted for observation has had no further symptoms, denies any weakness,difficulty with balance or coordination, difficulty swallowing slurred speech, changes in vision, loss of consciousness, difficulty with bowel or bladder function, fever, body aches, chills, cough, shortness of breath, CP, any skin lesions, abnormal bleeding, bruising, or wound healing. Patient is a nonsmoker, lipase 79, troponin 0.036, INR 1.0, chest x-ray normal, CK-MB normal, EKG [address] depression V4 V5 V6 and other nonspecific changes in ER. Discharge Providers Provider Date of admission: 07/23/20 20:11 Discharge Date: 07/24/20 Primary care physician: Yusef Abraham MD Consults: 07/23/20 21:01 Consult to Discharge Planning Routine Comment: Consult to Occupational Therapy Evaluate & Treat Comment: Physician Instructions: Evaluate and treat Discharge provider: Chris Jacobs DO Summary Hospital Course Discharge Diagnosis: 1. atypical chest pain, nonspecific EKG changes 2. Ruled out ACS 3. CAD, chronic 4. hypothyroidism acquired, chronic, stable, present on admission Hospital Course: Juany Edwards is a 60-year-old female with a past medical history of CAD with history of drug-eluting stent placement in 2006 with recent angiogram and stress testing 2 years ago which were unremarkable who presented after an episode atypical chest pain with some nonspecific EKG changes. Her initial troponin was just above the cutoff at 0.036, with repeat troponin negative. Echocardiogram was performed which showed a normal ejection fraction and no wall motion abnormalities. Given her nonspecific symptoms and EKG changes, with a repeat negative troponin and unremarkable echocardiogram, combined with a recent angiogram and stress testing 2 years ago that was unremarkable discussed with patient and she agreed to follow-up with her pharmacy picking tech as an outpatient. Further possibilities for her symptoms include undiagnosed arrhythmia, although no events were captured on telemetry during her stay. Patient was given return precautions and advised to follow-up with her pharmacy picking tech as noted above. Exam Vital Signs (past 8 hours): - 07/24/20 02:00 07/24/20 05:00 07/24/20 06:00 Temperature 97.2 F L Pulse Rate 64 Respiratory Rate 16 Blood Pressure 110/76 Pulse Oximetry 97 97 97 07/24/20 08:20 Temperature 97.5 F L Pulse Rate 66 Respiratory Rate 15 Blood Pressure 108/84 Pulse Oximetry 98 Oxygen Delivery Method Room Air Oxygen Flow Rate 0 Narrative Exam Narrative: General: Well-developed well-nourished female in no distress at this time HEENT: Normocephalic, atraumatic, extraocular muscles intact. PERRLA, oropharynx is clear and mucous membranes are moist. Neck is supple and symmetric trachea is midline, no thyroid enlargement, nontender, no masses palpated. Lungs: Auscultations of lung is clear in all [place] without adventitious sounds, wheezing, rhonchi, or rales Cardiac: S1-S2 with regular rate and rhythm without murmur rubs, or gallops, no carotid bruit. Musculoskeletal: Muscle strength and tone equal within normal limits, no deformity, crepitus, or effusions noted. No cyanosis, clubbing or edema, full range of motion intact, radial and pedal pulses are normal. Abdomen: Soft nontender, negative for organomegaly, or masses, bowel sounds present in all 4 quadrants no guarding or rebound present, no CVA tenderness. Skin: Warm dry and intact without rashes, ulcerations or petechiae. Neuro/psych: Alert orientated x3 appropriate affect strength is 5+ out of 5+ in all extremities, sensation to touch intact cranial nerves 2-12 grossly intact appearance mental status attitude, and thought context and judgment is appropriate for age. Objective Labs Result Diagrams: 07/23/20 18:45 07/24/20 04:55 Labs: Laboratory Results - last 24 hr 07/23/20 07/23/20 07/23/20 18:45 18:45 18:45 WBC 7.4 RBC 4.62 Hgb 13.9 Hct 41.2 MCV 89.2 MCH 30.1 MCHC 33.7 RDW 12.3 Plt Count 230 Neut % (Auto) 70.1 Lymph % (Auto) 23.8 L [place] % (Auto) 5.4 Eos % (Auto) 0.3 L Baso % (Auto) 0.4 Neut # (Auto) 5200 Lymph # (Auto) 1800 [place] # (Auto) 400 Eos # (Auto) 0 Baso # (Auto) 0 PT 11.3 INR 1.0 APTT 28 Sodium 137 Potassium 3.8 Chloride 105 Carbon Dioxide 29 BUN 15 Creatinine 0.87 Estimated GFR > 60.0 BUN/Creatinine Ratio 17.2 Glucose 100 Calcium 8.8 Magnesium Total Bilirubin 0.4 AST 41 H ALT 35 H Alkaline Phosphatase 40 Total Creatine Kinase 119 CK-MB (CK-2) 1.15 CK-MB (CK-2) Rel Index 1.0 L Troponin I 0.036 H NT-Pro-B Natriuret Pep Total Protein 7.0 Albumin 4.3 Globulin 2.7 Albumin/Globulin Ratio 1.6 Triglycerides Cholesterol LDL Cholesterol, Calc HDL Cholesterol Amylase Lipase 79 COVID-19 PCR 07/23/20 07/23/20 07/24/20 18:45 20:05 04:55 WBC RBC Hgb Hct MCV MCH MCHC RDW Plt Count Neut % (Auto) Lymph % (Auto) [place] % (Auto) Eos % (Auto) Baso % (Auto) Neut # (Auto) Lymph # (Auto) [place] # (Auto) Eos # (Auto) Baso # (Auto) PT INR APTT Sodium 135 L Potassium 3.8 Chloride 107 Carbon Dioxide 27 BUN 17 Creatinine 0.77 Estimated GFR > 60.0 BUN/Creatinine Ratio 22.1 H Glucose 101 Calcium 8.6 Magnesium 2.3 Total Bilirubin AST ALT Alkaline Phosphatase Total Creatine Kinase 96 CK-MB (CK-2) TNP CK-MB (CK-2) Rel Index TNP Troponin I < 0.012 NT-Pro-B Natriuret Pep 222 H Total Protein Albumin Globulin Albumin/Globulin Ratio Triglycerides 63 Cholesterol 159 LDL Cholesterol, Calc 86 HDL Cholesterol 60 Amylase 50 Lipase COVID-19 PCR Negative PFSH Medical History Coronary artery disease History of placement of stent in LAD coronary artery Surgical History History of tubal ligation Family History (Updated 07/24/20 @ 06:41 by FADI Fontana) Brother CAD (coronary artery disease) of artery bypass graft Colorectal cancer Brother CAD (coronary artery disease) of artery bypass graft Brother CAD (coronary artery disease) of artery bypass graft Brother CAD (coronary artery disease) of artery bypass graft Father CAD (coronary artery disease) of artery bypass graft Mother CAD (coronary artery disease) of artery bypass graft Social History household members: family and friend(s) Smoking Status: Never smoker Discharge Plan Discharge Plan Patient Disposition: Home Provider Discharge Comment: You were admitted to the hospital after an episode of dizziness. Because of your angiogram 2 years ago, now negative lab values, and a normal echocardiogram, I recommend you follow up with your pharmacy picking tech for further evaluation. No medication changes are necessary. If you can, try and obtain a holter monitor from your PMD or pharmacy picking tech to see if any arrythmia is present, another alternative would be a watch with a heart rate monitor or fitbit type device which can be helpful as well. Discharge orders & Medications Prescriptions: Continued levothyroxine 50 mcg tablet 50 mcg PO QPM RF: 0 ferrous sulfate 325 mg (65 mg iron) Tablet 325 mg PO QPM RF: 0 lisinopril 10 mg tablet 10 mg PO QPM RF: 0 aspirin 81 mg Tablet 81 mg PO DAILY RF: 0 ezetimibe 10 mg tablet 10 mg PO QPM RF: 0 rosuvastatin 20 mg tablet 20 mg PO QPM RF: 0 calcium carbonate-vit D3-min 600 mg calcium- 400 unit Tablet 1 tab PO QPM RF: 0 Follow up/Referrals: Yusef Abraham MD [Primary Care Provider] - Diet/Activity/Treatments Diet: Diet as Tolerated Activity: As tolerated Visit Report/Discharge Packet Instructions: DI for Chest Pain, Dizziness, Nonvertigo Discharge Data Primary Care Provider: Yusef Abraham Attending Provider: Tara Rojas
[2020-07-24] MEDS: LEVOTHYROXINE 50 MCG TABLET PO (09:56)
[2020-07-24] MEDS: ASPIRIN 81 MG CHEW TAB PO (09:56)
--- NOTE | 2020-07-24 10:44 | OT.IPNOTE ---
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 Pt is oriented and states that she is IND in all ADLs and mobility at this time. Nursing and certified nursing assistant concur. Pt is agreeable to cancelling OT order at this time as she feels she does not need therapy. Will cancel order.
--- NOTE | 2020-07-24 11:46 | CM.DANOTE ---
Met briefly with patient to introduce myself, my role and offer to assist with any discharge needs. Pt. had just gotten off the phone with Wallace luis arranging her ride to the [facility]. Her friend will pick her up at the [facility] terminal and take her home. She declines my offer to assist with anything post discharge. States she is independant and doesn't believe she requires any additional assistance or information at this time.
[2020-07-24 12:10] VITALS: BP 146/71; PULSE 9; RESP 16; TEMP 36.6; O2SAT 96
--- NOTE | 2020-07-24 15:46 | PC.NURSE ---
Ready to d/c home. D/c instructions given by . No c/p. Reviewed d/c packet. No new meds. Priority load given pt but then [place]. [place] via [place].
== END 2020-07-24 14:00 | disposition home or self-care (01) ==
LOC: ED 20:10 → AC 20:12
PROVIDERS: Admitting Provider Nurse Practitioner Family; Emergency Provider Emergency Medicine; PCP Family Medicine; Visit Provider Nurse Practitioner Family
DX: R07.9 Chest pain, unspecified (principal); R42 Dizziness and giddiness; I25.10 Atherosclerotic heart disease of native coronary artery without angina pectoris; E03.9 Hypothyroidism, unspecified; Z01.812 Encounter for preprocedural laboratory examination; Z20.828 Contact with and (suspected) exposure to other viral communicable diseases
CPT/HCPCS: 36415; 71045; 80048; 80053; 80061; 82150; 82550; 82553; 83690; 83735; 83880; 84484; 85025; 85610; 85730; 87635; 93005; 93010; 93306; 99284; G0378

== ENCOUNTER → 2021-04-09 08:24 | Outpatient (CLI) | payer OTHER, MEDICAID, SELFPAY ==
[2020-07-23 21:08] VITALS: BMI 22.9
[2021-04-09 19:12] LABS: Add Manual Diff / Slide Review NO; Basophils Absolute Auto 0 /uL (0-100); Basophils Percent Auto 0.6 % (0-2); Eosinophils Absolute Auto 300 /uL (0-450); Eosinophils Percent Auto 4.6 % (2-4); Hematocrit 44.3 % (36-46); Hemoglobin 14.2 g/dL (12.0-16.0); Lymphocytes Absolute Auto 1900 /uL (1100-4500); Mean Corpuscular Hemoglobin 29.6 PG (26-34); Mean Corpuscular Volume 92.5 fL (80-100); Monocytes Absolute Auto 400 /uL (0-900); Monocytes Percent Auto 6.7 % (3-14); Neutrophils Absolute Auto 3100 /uL (1500-7000); Neutrophils Percent Auto 55.1 % (50-75); Platelet Count 246 X10^3/uL (150-400); Red Blood Cell Count 4.79 X10^6/uL (4.0-5.2); Red Cell Distribution Width 12.7 % (11.6-14.8); White Blood Cell Count 5.7 X10^3/uL (4.5-11.0)
[2021-04-09 19:14] LABS: Alanine Aminotransferase 46 IU/L (<35); Albumin 4.6 g/dL (3.5-5.0); Alkaline Phosphatase 45 U/L (38-126); Aspartate Aminotransferase 51 IU/L (14-36); BUN Creatinine Ratio 17.3 (6-22); Bilirubin Total 0.5 mg/dL (0.2-1.3); Blood Urea Nitrogen 14 mg/dL (7-17); Calcium 9.6 mg/dL (8.4-10.2); Carbon Dioxide 29 mmol/L (22-32); Chloride 104 mmol/L (98-107); Cholesterol 203 mg/dL (140-199); Estimated Glomerular Filt Rate > 60.0 mL/min (>60); Globulin 2.3 g/dL (1.7-4.1); Glucose 90 mg/dL (80-110); HDL Cholesterol 86 mg/dL (40-60); HEMOLYSIS < 15 (0-50); LDL Cholesterol Calculated 100 mg/dL (<100); Sodium 140 mmol/L (137-145); Total Protein 6.9 g/dL (6.3-8.2); Triglycerides 85 mg/dL (35-150)
[2021-04-09 19:51] LABS: TSH w/ Reflex to FT4 3.17 uIU/mL (0.47-4.68)
== END ==
PROVIDERS: PCP Physician Assistant Medical; Visit Provider Physician Assistant Medical
DX: E78.5 Hyperlipidemia, unspecified (principal); E03.9 Hypothyroidism, unspecified; M85.80 Other specified disorders of bone density and structure, unspecified site; I10 Essential (primary) hypertension; M47.816 Spondylosis without myelopathy or radiculopathy, lumbar region; M51.26 Other intervertebral disc displacement, lumbar region
CPT/HCPCS: 80053; 80061; 84443; 85025

== ENCOUNTER → 2021-06-20 11:29 | Outpatient (CLI) | payer OTHER, MEDICAID, SELFPAY ==
[2020-07-23 21:08] VITALS: BMI 22.9
--- NOTE | 2021-06-20 11:31 | DI.MG.S_ITS ---
BILATERAL DIGITAL SCREENING MAMMOGRAM 3D/2D WITH CAD: 06/20/2021 CLINICAL: Routine screening. Comparison is made to exams dated: 06/17/2019 mammogram, 04/13/2018 mammogram, and 06/18/2020 mammogram - [facility]. The tissue of both breasts is heterogeneously dense. This may lower the sensitivity of mammography. Current study was also evaluated with a Computer Aided Detection (CAD) system. There are benign calcifications in both breasts. There also are benign vascular calcifications in the right breast. No significant masses, calcifications, or other findings are seen in either breast. There has been no significant interval change. IMPRESSION: BENIGN There is no mammographic evidence of malignancy. A 1 year screening mammogram is recommended. This exam was interpreted at Station ID: [id number]. NOTE: For mammograms, a report in lay terms will be sent to the patient. Approximately 15% of breast malignancies will not be visualized mammographically. In the management of a palpable breast mass, a negative mammogram must not discourage biopsy of a clinically suspicious lesion. Electronically Signed By: Tala silva/rina:06/20/2021 13:05:20 letter sent: Normal Exam ACR BI-RADS Category 2: Benign Finding(s) [id number]
== END ==
PROVIDERS: PCP Physician Assistant Medical; Referring Provider Physician Assistant Medical; Visit Provider Physician Assistant Medical
DX: Z12.31 Encounter for screening mammogram for malignant neoplasm of breast (principal)
CPT/HCPCS: 77063; 77067

== ENCOUNTER → 2021-08-22 09:18 | Outpatient (CLI) | payer OTHER, MEDICAID, SELFPAY ==
[2020-07-23 21:08] VITALS: BMI 22.9
[2021-08-22 19:21] LABS: Alanine Aminotransferase 18 IU/L (<35); Albumin 4.2 g/dL (3.5-5.0); Albumin Globulin Ratio 1.8 (1.0-2.8); Alkaline Phosphatase 40 U/L (38-126); Aspartate Aminotransferase 26 IU/L (14-36); Bilirubin Total 0.5 mg/dL (0.2-1.3); Bilirubin Unconjugated 0.6 mg/dL (0.0-1.1); Blood Urea Nitrogen 12 mg/dL (7-17); Calcium 9.3 mg/dL (8.4-10.2); Carbon Dioxide 31 mmol/L (22-32); Chloride 102 mmol/L (98-107); Estimated Glomerular Filt Rate > 60.0 mL/min (>60); Gamma Glutamyl Transpeptidase 18 U/L (12-43); Globulin 2.4 g/dL (1.7-4.1); Glucose 97 mg/dL (80-110); HEMOLYSIS < 15 (0-50); Potassium 3.9 mmol/L (3.4-5.1); Sodium 136 mmol/L (137-145); Total Protein 6.6 g/dL (6.3-8.2)
== END ==
PROVIDERS: PCP Physician Assistant Medical; Visit Provider Physician Assistant Medical
DX: R79.89 Other specified abnormal findings of blood chemistry (principal); E78.5 Hyperlipidemia, unspecified
CPT/HCPCS: 80053; 80076; 82977

== ENCOUNTER → 2022-07-06 11:38 | Outpatient (CLI) | payer OTHER, MEDICAID, SELFPAY ==
[2020-07-23 21:08] VITALS: BMI 22.9
--- NOTE | 2022-07-06 | DI.MG.S_ITS ---
BILATERAL DIGITAL SCREENING MAMMOGRAM 3D/2D WITH CAD: 07/06/2022 CLINICAL: Routine screening. Comparison is made to exams dated: 06/20/2021 mammogram, 06/18/2020 mammogram, and 06/17/2019 mammogram - [facility]. Both breasts are heterogeneously dense, which may obscure small masses (category c / 51-75% glandular tissue). Current study was also evaluated with a Computer Aided Detection (CAD) system. There are benign calcifications in both breasts. There also are benign vascular calcifications in the right breast. No significant masses, calcifications, or other findings are seen in either breast. There has been no significant interval change. IMPRESSION: BENIGN There is no mammographic evidence of malignancy. A 1 year screening mammogram is recommended. Based on the Tyrer Cuzick model (a risk assessment model) the patient's lifetime risk is 8.1% and her 10 year risk is 3.5%. According to the ACR, ACS, and NCCN guidelines, an annual breast MRI exam along with mammogram is recommended if the patient's lifetime risk is 20% or greater. This exam was interpreted at Station ID: [id number]. NOTE: For mammograms, a report in lay terms will be sent to the patient. Approximately 15% of breast malignancies will not be visualized mammographically. In the management of a palpable breast mass, a negative mammogram must not discourage biopsy of a clinically suspicious lesion. Electronically Signed By: Jennifer mello/rina:07/06/2022 12:21:25 letter sent: Normal Exam ACR BI-RADS Category 2: Benign Finding(s) 3342F
== END ==
PROVIDERS: PCP Physician Assistant Medical; Referring Provider Physician Assistant Medical; Visit Provider Physician Assistant Medical
DX: Z12.31 Encounter for screening mammogram for malignant neoplasm of breast (principal)
CPT/HCPCS: 77063; 77067